=== PATIENT | male | born 2000 | race African-American/Black ===

== ENCOUNTER 2024-05-17 02:48 | Emergency (ER) | payer OTHER, MEDICAID ==
[~2024-05-17] VITALS: Ht 177.8 cm; Wt 87.0 kg
[2024-05-17 02:59] VITALS: O2SAT 98
[2024-05-17] MEDS ORDERED: HYDROCODONE/ACETAMINOPHEN 5/325MG TABLET PO STA (03:19)
[2024-05-17 05:04] LABS: BASOPHILS % 0.5 % (0.0-2.0); EOSINOPHILS % 0.1 % (0.0-5.0); HEMATOCRIT. 41.3 % (42.0-52.0); HEMOGLOBIN. 13.9 g/dL (14.0-18.0); LYMPHOCYTES % 16.9 % (20.0-50.0); MEAN CORPUSCULAR HEMOGLOBIN 30.2 pg (28.0-32.0); MEAN CORPUSCULAR HGB CONC 33.7 g/dL (31.0-37.0); MEAN CORPUSCULAR VOLUME 89.7 fL (80.0-94.0); MEAN PLATELET VOLUME 7.4 fl (7.4-10.4); MONOCYTES % 5.4 % (2.0-8.0); NEUTROPHILS % 77.1 % (40.0-76.0); PLATELET 286 x1000/uL (130-400); RED CELL DISTRIBUTION WIDTH 12.4 % (11.6-14.6); WHITE BLOOD COUNT 8.1 x1000/uL (4.5-11.0)
[2024-05-17 05:05] LABS: CHLORIDE 106 mEq/L (98-107); SODIUM 138 mEq/L (136-145)
[2024-05-17 05:06] LABS: CALCIUM 9.5 mg/dL (8.7-10.4); CARBON DIOXIDE 28 mEq/L (21-32)
[2024-05-17 05:11] LABS: CREATININE 1.2 mg/dL (0.6-1.3); GLUCOSE 90 mg/dL (70-105); UREA NITROGEN BLOOD 11 mg/dL (9-23)
[2024-05-17] MEDS: HYDROCODONE/ACETAMINOPHEN 5/325MG TABLET PO NR (05:12)
[2024-05-17] MEDS: SODIUM CHLORIDE 0.9% 1,000 ML IV ONE (05:20)
[2024-05-17] MEDS ORDERED: AMOX-494 MT (06:04)
[2024-05-17] MEDS ORDERED: IBUP-2029 MT (06:04)
[2024-05-17 06:34] VITALS: BP 127/77; PULSE 83; RESP 16; TEMP 97.9
== END 2024-05-17 06:28 | disposition home or self-care (01) ==
LOC: ER 02:59
DX: S00.212A Abrasion of left eyelid and periocular area, initial encounter (principal); R51.9 Headache, unspecified; Y08.89XA Assault by other specified means, initial encounter; Y93.89 Activity, other specified; Y92.89 Other specified places as the place of occurrence of the external cause; Y99.8 Other external cause status
CPT/HCPCS: 99284; 70450; 96360; 71045; 80048; 85025; 86850; 86900; 86901; 36415; 70486; 72125; J7030